=== PATIENT | female | born 2005 | race Caucasian/White ===

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

== ENCOUNTER 2023-01-29 21:11 | Emergency (ER) | payer OTHER ==
[~2023-01-29] VITALS: Ht 160 cm; Wt 83.0 kg
[2023-01-29 21:59] VITALS: BP 123/77; PULSE 77; RESP 16; TEMP 97.3; O2SAT 98
[2023-01-29] MEDS ORDERED: KETOROLAC 60 MG/2 ML VIAL IM ONE (23:35)
[2023-01-29] MEDS ORDERED: IBUP-2213 PO (23:49)
== END 2023-01-30 00:05 | disposition home or self-care (01) ==
LOC: EDBD 21:11 → MED 21:11
DX: S90.111A Contusion of right great toe without damage to nail, initial encounter (principal); X58.XXXA Exposure to other specified factors, initial encounter; Y93.89 Activity, other specified; Y92.89 Other specified places as the place of occurrence of the external cause; Y99.8 Other external cause status
CPT/HCPCS: 73660; 81025; 96372; 99283; J1885